=== PATIENT | male | born 1985 ===

== ENCOUNTER 2021-04-11 21:03 | Emergency (ER) | payer SELFPAY ==
[2021-04-12 00:51] LABS: Basophils # (Auto) 0.1 K/mm3 (0.0-0.1); Basophils % (Auto) 0.9 % (0.0-1.8); Eosinophils # (Auto) 0.1 K/mm3 (0.0-0.4); Eosinophils % (Auto) 1.3 % (0.0-4.3); Hematocrit 42.2 % (35.5-45.6); Hemoglobin 14.6 gm/dl (11.8-15.2); Lymphocytes # (Auto) 2.2 K/mm3 (1.2-5.4); Lymphocytes % (Auto) 25.9 % (13.4-35.0); Mean Corpuscular HGB Conc 35 % (32-34); Mean Corpuscular Volume 89 fl (84-94); Monocytes # (Auto) 0.5 K/mm3 (0.0-0.8); Monocytes % (Auto) 6.6 % (0.0-7.3); Platelet Count 301 K/mm3 (140-440); Red Blood Count 4.72 M/mm3 (3.65-5.03); Red Cell Distribution Width 13.1 % (13.2-15.2)
[2021-04-12 00:53] LABS: Bilirubin,Urine NEG (Negative); Blood,Urine NEG (Negative); Color,Urine Yellow (Yellow); Mucus,Urine FEW /HPF; Protein,Urine <15 mg/dL mg/dL (Negative); RBC,Urine < 1.0 /HPF (0.0-6.0)
[2021-04-12 01:11] LABS: Alanine Aminotransferase 12 units/L (7-56); Albumin 4.3 g/dL (3.9-5); BUN/Creatinine Ratio 13; Blood Urea Nitrogen 10 mg/dL (9-20); Calcium 9.3 mg/dL (8.4-10.2); Hemolysis Index 9
--- NOTE | 2021-04-12 01:29 | Emergency Department Report ---
ED General Adult HPI - General Chief complaint: Psych Stated complaint: Im fine PUI?: No Time Seen by Provider: 04/12/21 00:50 Source: patient, police, EMS ( EMS documentation not available at time of chart dictation ), RN notes reviewed Mode of arrival: Stretcher Limitations: Other (Patient is disorganized) - History of Present Illness Initial comments: The patient is a 35-year-old gentleman. He is not known to myself previously. He is brought to the hospital by emergency medical services. It is unclear why the patient was brought to the hospital. The patient is disorganized. He is not accompanied by friends or family at this time for collateral information or additional information. I asked the patient if anything is hurting him. He says no. Patient is then asked if he has any request for medical evaluation. He says no. However, the patient cannot tell me where he lives, where he is currently located, the date, month or year. The patient asks for food. However, the patient does not demonstrate rational thought process. The patient has a black eye. He cannot tell me how he got it. No additional history is available at this time. It is unclear who called 911 -: unknown - Related Data Allergies Allergy/AdvReac Type Severity Reaction Status Date / Time No Known Allergies Allergy Verified 04/11/21 21:53 ED Review of Systems ROS: Stated complaint: FEELING SICK X 2MTHS/HOMELESS Other details as noted in HPI Comment: Unobtainable due to pts medical conditions ED Past Medical Hx - Past Medical History Previous Medical History?: No ED Physical Exam - General Limitations: Altered Mental Status, Other (Disorganized behavior) General appearance: anxious - Head Head exam: Present: atraumatic, normocephalic - Eye Eye exam: Present: PERRL, EOMI, periorbital swelling, periorbital tenderness. Absent: normal appearance (There is a right-sided supraorbital ecchymosis) - ENT ENT exam: Present: normal exam, normal orophraynx, mucous membranes moist, normal external ear exam - Neck Neck exam: Present: normal inspection, full ROM. Absent: tenderness, meningismus - Respiratory Respiratory exam: Present: normal lung sounds bilaterally. Absent: respiratory distress, wheezes, rales, rhonchi, stridor, decreased breath sounds - Cardiovascular Cardiovascular Exam: Present: regular rate, normal rhythm, normal heart sounds. Absent: bradycardia, tachycardia, irregular rhythm, systolic murmur, diastolic murmur, rubs, gallop - GI/Abdominal GI/Abdominal exam: Present: soft. Absent: distended, tenderness, guarding, rebound, rigid, pulsatile mass - Rectal Rectal exam: Present: deferred - Extremities Exam Extremities exam: Present: normal inspection, full ROM, other (2+ pulses noted in the bilateral upper and lower extremities. There is no palpable cord. negative Homans sign. Muscular compartments are soft. The pelvis is stable.). Absent: pedal edema, calf tenderness - Back Exam Back exam: Present: normal inspection, full ROM. Absent: tenderness, CVA tenderness (R), CVA tenderness (L), paraspinal tenderness, vertebral tenderness - Neurological Exam Neurological exam: Present: other (There is no facial droop. The tongue is midline. EOMI. 5 out of 5 strength in 4 extremities. Sensation intact to light touch in 4 extremities). Absent: motor sensory deficit - Psychiatric Psychiatric exam: Present: flat affect - Skin Skin exam: Present: warm, abrasion, ecchymosis ED Course Vital Signs 04/11/21 21:52 Temperature 98.6 F Pulse Rate 88 Respiratory 16 Rate Blood Pressure 132/80 [Left] O2 Sat by Pulse 97 Oximetry - Reevaluation(s) Reevaluation #1: 04/12/21 02:44 Differential diagnosis, including but not limited to: Homelessness, psychosis, malingering, encounter for behavioral health screening, encounter for medical screening examination, intracranial injury, cervical spine injury, facial injury Assessment and plan: 35-year-old gentleman, who was afebrile, with reassuring vital signs, who appears to be acutely disorganized, and through questioning, does not appear to demonstrate rational thought process or decision-making capacity. He cannot tell me how he has a black eye, nor can he tell me the context of how he came to be to the emergency room. Patient very quiet, withdrawn, and he does not demonstrate the ability to care for himself independently, or demonstrate a rational thought process. He is therefore placed on a 1013 hold/involuntary hold. Appropriate laboratory studies will be obtained. Given evidence of close head injury and blunt facial trauma, noncontrast CT scan of the brain, facial bones and cervical spine will be obtained. Psychiatric consultation will be requested once the patient has been medically cleared. Reevaluation #2: 04/12/21 02:53 I am now able to review EMS documentation. They document the patient's chief complaint was vomiting and feeling sick. There is no reported use of drugs or alcohol. EMS documents a GCS of 15. Apparently, patient found sitting upright on a park bench, with a cra officer on scene, who advised that the patient is homeless, and requested to be tr ansported to the hospital because he is cold. Given this history, in addition to the assessment by our nursing team, I suspect that this patient is presenting for the purposes of secondary gain, i.e. prison, and food. However, we will medically clear him for the psychiatric team to make final d isposition and recommendations. 04/12/21 03:52 ER work-up unremarkable for acute and/or emergent findings. I observed this patient to be showering in our decontamination room, and in no acute distress. CT scan brain, cervical spine and facial bones negative for acute findings. At this point in time, this patient does not have an immediate medical contraindication to psychiatric admission, evaluation, consultation and placement. If the psychiatric team advises that this patient is organized e nough to be discharged and does not require 1013 hold or involuntary hold, medically speaking, he is suitable for discharge with outpatient follow-up. Therefore, final disposition will be as per our psychiatric colleagues recommendations ED Medical Decision Making - Lab Data Result diagrams: 04/12/21 00:20 04/12/21 00:20 Vital Signs 04/11/21 21:52 Temperature 98.6 F Pulse Rate 88 Respiratory 16 Rate Blood Pressure 132/80 [Left] O2 Sat by Pulse 97 Oximetry Lab Results 04/12/21 04/12/21 04/12/21 Range/Units 00:20 00:20 00:20 WBC 8.4 (4.5-11.0) K/mm3 RBC 4.72 (3.65-5.03) M/mm3 Hgb 14.6 (11.8-15.2) gm/dl Hct 42.2 (35.5-45.6) % MCV 89 (84-94) fl MCH 31 (28-32) pg MCHC 35 H (32-34) % RDW 13.1 L (13.2-15.2) % Plt Count 301 (140-440) K/mm3 Lymph % (Auto) 25.9 (13.4-35.0) % [place] % (Auto) 6.6 (0.0-7.3) % Eos % (Auto) 1.3 (0.0-4.3) % Baso % (Auto) 0.9 (0.0-1.8) % Lymph # (Auto) 2.2 (1.2-5.4) K/mm3 [place] # (Auto) 0.5 (0.0-0.8) K/mm3 Eos # (Auto) 0.1 (0.0-0.4) K/mm3 Baso # (Auto) 0.1 (0.0-0.1) K/mm3 Seg Neutrophils % 65.3 (40.0-70.0) % Seg Neutrophils # 5.5 (1.8-7.7) K/mm3 Sodium 139 (137-145) mmol/L Potassium 3.8 (3.6-5.0) mmol/L Chloride 100.7 (98-107) mmol/L Carbon Dioxide 26 (22-30) mmol/L Anion Gap 16 mmol/L BUN 10 (9-20) mg/dL Creatinine 0.8 (0.8-1.3) mg/dL Estimated GFR > 60 ml/min BUN/Creatinine Ratio 13 % Glucose 91 (75-100) mg/dL Calcium 9.3 (8.4-10.2) mg/dL Total Bilirubin 0.70 (0.1-1.2) mg/dL AST 15 (5-40) units/L ALT 12 (7-56) units/L Alkaline Phosphatase 70 (35-129) units/L Total Protein 7.4 (6.3-8.2) g/dL Albumin 4.3 (3.9-5) g/dL Albumin/Globulin Ratio 1.4 % Lipase 35 (13-60) units/L Urine Color (Yellow) Urine Turbidity (Clear) Urine pH (5.0-7.0) Ur Specific [place] (1.003-1.030) Urine Protein (Negative) mg/dL Urine Glucose (UA) (Negative) mg/dL Urine Ketones (Negative) mg/dL Urine Blood (Negative) Urine Nitrite (Negative) Urine Bilirubin (Negative) Urine Urobilinogen (<2.0) mg/dL Ur Leukocyte Esterase (Negative) Urine WBC (Auto) (0.0-6.0) /HPF Urine RBC (Auto) (0.0-6.0) /HPF Urine Mucus /HPF Urine Opiates Screen Urine Methadone Screen Acetaminophen (10.0-30.0) ug/mL Ur Barbiturates Screen Ur Phencyclidine Scrn Ur Amphetamines Screen U Benzodiazepines Scrn Urine Cocaine Screen U Marijuana (THC) Screen 04/12/21 04/12/21 04/12/21 Range/Units 00:33 02:13 Unknown WBC (4.5-11.0) K/mm3 RBC (3.65-5.03) M/mm3 Hgb (11.8-15.2) gm/dl Hct (35.5-45.6) % MCV (84-94) fl MCH (28-32) pg MCHC (32-34) % RDW (13.2-15.2) % Plt Count (140-440) K/mm3 Lymph % (Auto) (13.4-35.0) % [place] % (Auto) (0.0-7.3) % Eos % (Auto) (0.0-4.3) % Baso % (Auto) (0.0-1.8) % Lymph # (Auto) (1.2-5.4) K/mm3 [place] # (Auto) (0.0-0.8) K/mm3 Eos # (Auto) (0.0-0.4) K/mm3 Baso # (Auto) (0.0-0.1) K/mm3 Seg Neutrophils % (40.0-70.0) % Seg Neutrophils # (1.8-7.7) K/mm3 Sodium (137-145) mmol/L Potassium (3.6-5.0) mmol/L Chloride (98-107) mmol/L Carbon Dioxide (22-30) mmol/L Anion Gap mmol/L BUN (9-20) mg/dL Creatinine (0.8-1.3) mg/dL Estimated GFR ml/min BUN/Creatinine Ratio % Glucose (75-100) mg/dL Calcium (8.4-10.2) mg/dL Total Bilirubin (0.1-1.2) mg/dL AST (5-40) units/L ALT (7-56) units/L Alkaline Phosphatase (35-129) units/L Total Protein (6.3-8.2) g/dL Albumin (3.9-5) g/dL Albumin/Globulin Ratio % Lipase (13-60) units/L Urine Color Yellow Yellow (Yellow) Urine Turbidity Clear Clear (Clear) Urine pH 5.0 5.0 (5.0-7.0) Ur Specific [place] 1.016 1.016 (1.003-1.030) Urine Protein <15 mg/dl <15 mg/dl (Negative) mg/dL Urine Glucose (UA) Neg Neg (Negative) mg/dL Urine Ketones Tr Tr (Negative) mg/dL Urine Blood Neg Neg (Negative) Urine Nitrite Neg Neg (Negative) Urine Bilirubin Neg Neg (Negative) Urine Urobilinogen 4.0 4.0 (<2.0) mg/dL Ur Leukocyte Esterase Neg Neg (Negative) Urine WBC (Auto) 1.0 < 1.0 (0.0-6.0) /HPF Urine RBC (Auto) < 1.0 1.0 (0.0-6.0) /HPF Urine Mucus Few Few /HPF Urine Opiates Screen Urine Methadone Screen Acetaminophen 5.0 L (10.0-30.0) ug/mL Ur Barbiturates Screen Ur Phencyclidine Scrn Ur Amphetamines Screen U Benzodiazepines Scrn Urine Cocaine Screen U Marijuana (THC) Screen 04/12/21 Range/Units Unknown WBC (4.5-11.0) K/mm3 RBC (3.65-5.03) M/mm3 Hgb (11.8-15.2) gm/dl Hct (35.5-45.6) % MCV (84-94) fl MCH (28-32) pg MCHC (32-34) % RDW (13.2-15.2) % Plt Count (140-440) K/mm3 Lymph % (Auto) (13.4-35.0) % [place] % (Auto) (0.0-7.3) % Eos % (Auto) (0.0-4.3) % Baso % (Auto) (0.0-1.8) % Lymph # (Auto) (1.2-5.4) K/mm3 [place] # (Auto) (0.0-0.8) K/mm3 Eos # (Auto) (0.0-0.4) K/mm3 Baso # (Auto) (0.0-0.1) K/mm3 Seg Neutrophils % (40.0-70.0) % Seg Neutrophils # (1.8-7.7) K/mm3 Sodium (137-145) mmol/L Potassium (3.6-5.0) mmol/L Chloride (98-107) mmol/L Carbon Dioxide (22-30) mmol/L Anion Gap mmol/L BUN (9-20) mg/dL Creatinine (0.8-1.3) mg/dL Estimated GFR ml/min BUN/Creatinine Ratio % Glucose (75-100) mg/dL Calcium (8.4-10.2) mg/dL Total Bilirubin (0.1-1.2) mg/dL AST (5-40) units/L ALT (7-56) units/L Alkaline Phosphatase (35-129) units/L Total Protein (6.3-8.2) g/dL Albumin (3.9-5) g/dL Albumin/Globulin Ratio % Lipase (13-60) units/L Urine Color (Yellow) Urine Turbidity (Clear) Urine pH (5.0-7.0) Ur Specific [place] (1.003-1.030) Urine Protein (Negative) mg/dL Urine Glucose (UA) (Negative) mg/dL Urine Ketones (Negative) mg/dL Urine Blood (Negative) Urine Nitrite (Negative) Urine Bilirubin (Negative) Urine Urobilinogen (<2.0) mg/dL Ur Leukocyte Esterase (Negative) Urine WBC (Auto) (0.0-6.0) /HPF Urine RBC (Auto) (0.0-6.0) /HPF Urine Mucus /HPF Urine Opiates Screen Negative Urine Methadone Screen Negative Acetaminophen (10.0-30.0) ug/mL Ur Barbiturates Screen Negative Ur Phencyclidine Scrn Negative Ur Amphetamines Screen Negative U Benzodiazepines Scrn Negative Urine Cocaine Screen Negative U Marijuana (THC) Screen Negative - Radiology Data Radiology results: pending, report reviewed, image reviewed CT head without contrast INDICATION : closed head injury, disorganised behaviour. TECHNIQUE: Axial imaging performed from the skull apex through the skull base without the use of contrast. All CT scans at this location are performed using CT dose reduction for ALARA by means of automated exposure control. COMPARISON: None FINDINGS: Parenchyma: No mass, stroke or hemorrhage. Ventricles: Ventricles are normal in size and appear symmetric. Soft tissues: Soft tissues including the orbits appear normal. Bones: No acute osseous abnormality. Sinuses: Sinuses and mastoid air cells are clear. IMPRESSION: No acute abnormality. Signer Name: Gonzalez Carias MD Signed: 04/12/2021 1:53 AM Workstation Name: [id number] CT facial bones wo con INDICATION: closed head injury, disorganised behaviour. TECHNIQUE: All CT scans at this location are performed using the following dose modulation technique: Automated exposure control. CONTRAST: None. COMPARISON: None available. FINDINGS: Negative for bony injury or sinus air-fluid level. No significant soft tissue injury. IMPRESSION: Unremarkable CT face without contrast. Signer Name: Gonzalez Carias MD Signed: 04/12/2021 1:51 AM Workstation Name: [id number] CT cervical spine wo con INDICATION: closed head injury, disorganised behaviour. Neck pain. TECHNIQUE: All CT scans at this location are performed using the following dose modulation technique: Automated exposure control. CONTRAST: None. COMPARISON: None available. FINDINGS: Satisfactory alignment without vertebral compression or significant degenerative change. No significant soft tissue injury. IMPRESSION: Negative CT cervical spine without contrast. Signer Name: Gonzalez Carias MD Signed: 04/12/2021 2:07 AM Workstation Name: [email or web address] Critical care attestation.: If time is entered above; I have spent that time in minutes in the direct care of this critically ill patient, excluding procedure time. ED Disposition Clinical Impression: Homelessness, Closed head injury, Disorganized behavior, Encounter for medical screening examination, Encounter for behavioral health screening Disposition: [address] [place] [address] Is pt being admited?: No Does the pt Need Aspirin: No Condition: Good Referrals: JOVON PALAFOX MD [Primary Care Provider] - 3-5 Days
[2021-04-12] MEDS ORDERED: HALOPERIDOL LACTATE 5 MG/1 ML INJ IM PRN (01:38)
[2021-04-12] MEDS ORDERED: LORazepam 2 MG/ML VIAL IM PRN (01:38)
[2021-04-12 02:34] LABS: Bilirubin,Urine NEG (Negative); Blood,Urine NEG (Negative); Color,Urine Yellow (Yellow); Mucus,Urine FEW /HPF; Protein,Urine <15 mg/dL mg/dL (Negative); WBC,Urine < 1.0 /HPF (0.0-6.0)
[2021-04-12 02:40] LABS: Amphetamine Screen,Urine Negative; Benzodiazepines Screen,Urine Negative; Cannabinoid Screen,Urine Negative; Cocaine Screen,Urine Negative; Methadone Screen,Urine Negative; Opiate Screen,Urine Negative
--- NOTE | 2021-04-12 02:55 | Cat Scan Report ---
CT facial bones wo con INDICATION: closed head injury, disorganised behaviour. TECHNIQUE: All CT scans at this location are performed using the following dose modulation technique: Automated exposure control. CONTRAST: None. COMPARISON: None available. FINDINGS: Negative for bony injury or sinus air-fluid level. No significant soft tissue injury. IMPRESSION: Unremarkable CT face without contrast. Signer Name: Gonzalez Carias MD Signed: 04/12/2021 2:51 AM Workstation Name: [id number]
--- NOTE | 2021-04-12 02:58 | Cat Scan Report ---
CT head without contrast INDICATION : closed head injury, disorganised behaviour. TECHNIQUE: Axial imaging performed from the skull apex through the skull base without the use of con trast. All CT scans at this location are performed using CT dose reduction for AL[place] by means of aut omated exposure control. COMPARISON: None FINDINGS: Parenchyma: No mass, stroke or hemorrhage. Ventricles: Ventricles are normal in size and appear symmetric. Soft tissues: Soft tissues including the orbits appear normal. Bones: No acute osseous abnormality. Sinuses: Sinuses and mastoid air cells are clear. IMPRESSION: No acute abnormality. Signer Name: Gonzalez Carias MD Signed: 04/12/2021 2:53 AM Workstation Name: [id number]
--- NOTE | 2021-04-12 03:12 | Cat Scan Report ---
CT cervical spine wo con INDICATION: closed head injury, disorganised behaviour. Neck pain. TECHNIQUE: All CT scans at this location are performed using the following dose modulation technique: Automated exposure control. CONTRAST: None. COMPARISON: None available. FINDINGS: Satisfactory alignment without vertebral compression or significant degenerative change. No significant soft tissue injury. IMPRESSION: Negative CT cervical spine without contrast. Signer Name: Gonzalez Carias MD Signed: 04/12/2021 3:07 AM Workstation Name: [id number]
--- NOTE | 2021-04-12 10:33 | Consultation ---
History of Present Illness - Reason for Consult Consult date: 04/12/21 Reason for consult: Mental health evaluation - History of Present Psychiatric Illness Per ED Note: The patient is a 35-year-old gentleman. He is not known to myself previously. He is brought to the hospital by emergency medical services. It is unclear why the patient was brought to the hospital.The patient is disorganized. He is not accompanied by friends or family at this time for collateral information or additional information. I asked the patient if anything is hurting him. He says no. Patient is then asked if he has any request for medical evaluation. He says no. However, the patient cannot tell me where he lives, where he is currently located, the date, month or year. The patient asks for food. However, the patient does not demonstrate rational thought process. Benigno Lopez is a 35 year old male with unknown psychiatric diagnosis. In my interview with the patient, he presents with flat affect. The patient is unable to participate in assessment; presents with questionable thought process, he does not seem to understand the questions but states a "No" response. The patient has a black eye. He cannot tell me how he got it. PAST PSYCHIATRIC HISTORY- Unable to assess PAST MEDICAL HISTORY: Family Psychiatric History: None reported or documented SOCIAL HISTORY-Unable to assess REVIEW OF SYSTEMS-Unable to assess MENTAL STATUS EXAMINATION Assessment and Plan (1) Unspecified mood disorder Current Visit: No Status: Acute RECOMMENDATIONS continue 1013 Zyprexa 5mg po Bid Risks, benefits and alternatives of medications discussed with the patient, questions answered and consent obtained from patient. PSYCHOTHERAPY: Supportive psychotherapy provided MEDICAL: Per primary team DELIRIUM PRECAUTIONS: Please re-orient patient frequently, keep lights on during the day, and minimize benzodiazepines and opiates as these medications could worsen patient's confusion. PBX MANAGER: non indicated DISPOSITION: Recommend acute inpatient psychiatric hospitalization at this time. FOLLOW-UP: Will follow. Thank you for the consult. Please contact with any questions and/or concerns. Medications and Allergies Medications and Allergies Medications and Allergies Allergies Allergy/AdvReac Type Severity Reaction Status Date / Time No Known Allergies Allergy Verified 04/11/21 21:53 Active Meds: Active Medications Haloperidol Lactate (Haloperidol Lactate 5 Mg/1 Ml Inj) 5 mg IM Q6HR PRN PRN Reason: Agitation Lorazepam (Lorazepam 2 Mg/Ml Vial) 2 mg IM Q4HR PRN PRN Reason: Agitation Mental Status Exam - Vital signs Last Vital Signs Temp 98.6 F 04/11/21 21:52 Pulse 88 04/11/21 21:52 Resp 16 04/11/21 21:52 BP 132/80 04/11/21 21:52 Pulse Ox 97 04/11/21 21:52 Results Result Diagrams: 04/12/21 00:20 04/12/21 00:20 Abnormal lab results 04/12/21 04/12/21 04/12/21 Range/Units 00:20 02:13 02:13 MCHC 35 H (32-34) % RDW 13.1 L (13.2-15.2) % Salicylates < 0.3 L (2.8-20.0) mg/dL Acetaminophen 5.0 L (10.0-30.0) ug/mL All other labs normal.
--- NOTE | 2021-04-12 11:25 | Emergency Department Report ---
Blank Doc - Documentation Documentation: Patient has no complaints or concerns this morning. Psychiatric recommendations have been noted. We will continue to provide supportive care until psychiatric placement can be accomplished.
--- NOTE | 2021-04-13 09:57 | Progress Note ---
Subjective - Reason for Consult Consult date: 04/13/21 Reason for consult: Mental health evaluation - Chief Complaint Chief complaint: The patient was seen this morning, he continues to present with mutism. The patient is confused and unable to answer questions. PAST PSYCHIATRIC HISTORY- Unable to assess PAST MEDICAL HISTORY: Family Psychiatric History: None reported or documented SOCIAL HISTORY-Unable to assess REVIEW OF SYSTEMS-Unable to assess MENTAL STATUS EXAMINATION Assessment and Plan (1) Unspecified mood disorder Current Visit: No Status: Acute RECOMMENDATIONS continue 1013 Zyprexa 5mg po Bid Risks, benefits and alternatives of medications discussed with the patient, questions answered and consent obtained from patient. PSYCHOTHERAPY: Supportive psychotherapy provided MEDICAL: Per primary team DELIRIUM PRECAUTIONS: Please re-orient patient frequently, keep lights on during the day, and minimize benzodiazepines and opiates as these medications could worsen patient's confusion. POTTER OR CERAMIC ARTIST: non indicated DISPOSITION: Recommend acute inpatient psychiatric hospitalization at this time. FOLLOW-UP: Will follow. Thank you for the consult. Please contact with any questions and/or concerns. Medications and Allergies Medications and Allergies Medications and Allergies Allergies Mental Status Exam - Vital signs Last Vital Signs Temp 98.6 F 04/13/21 09:48 Pulse 79 04/13/21 09:48 Resp 18 04/13/21 09:48 BP 101/67 04/13/21 09:48 Pulse Ox 96 04/13/21 09:48
--- NOTE | 2021-04-13 11:11 | Emergency Department Report ---
Blank Doc - Documentation Documentation: Patient is still not cooperative or interactive today. He had apparently refu sed a coronavirus swab. He does not have the capacity to refuse care. Coronavirus swab will be reordered. We are awaiting psychiatric admission.
[2021-04-14 03:47] VITALS: BP 99/69
--- NOTE | 2021-04-14 11:20 | Progress Note ---
Subjective - Reason for Consult Consult date: 04/14/21 Reason for consult: mental health evaluation - Chief Complaint Chief complaint: The patient was seen this morning, he continues to present with mutism. The patient is confused and unable to answer questions. PAST PSYCHIATRIC HISTORY- Unable to assess PAST MEDICAL HISTORY: Family Psychiatric History: None reported or documented SOCIAL HISTORY-Unable to assess REVIEW OF SYSTEMS-Unable to assess MENTAL STATUS EXAMINATION Assessment and Plan (1) Unspecified mood disorder Current Visit: No Status: Acute RECOMMENDATIONS continue 1013 Continue Zyprexa 5mg po Bid Start Depakote 125mg po BID Risks, benefits and alternatives of medications discussed with the patient, questions answered and consent obtained from patient. PSYCHOTHERAPY: Supportive psychotherapy provided MEDICAL: Per primary team DELIRIUM PRECAUTIONS: Please re-orient patient frequently, keep lights on during the day, and minimize benzodiazepines and opiates as these medications could worsen patient's confusion. STUDIO GRIP: non indicated DISPOSITION: Recommend acute inpatient psychiatric hospitalization at this time. FOLLOW-UP: Will follow. Thank you for the consult. Please contact with any questions and/or concerns. Medications and Allergies Medications and Allergies Medications and Allergies Allergies Mental Status Exam - Vital signs Last Vital Signs Temp 97.6 F 04/14/21 03:46 Pulse 86 04/14/21 03:46 Resp 18 04/14/21 03:46 BP 99/69 04/14/21 03:46 Pulse Ox 98 04/14/21 11:04
--- NOTE | 2021-04-14 11:47 | Emergency Department Report ---
Blank Doc - Documentation Documentation: This patient was seen by the psychiatric team today. He is listed as having a mood disorder and continues with mutism. The recommendation is to continue for inpatient stabilization. They are attempting to stabilize the patient with Zyprexa and Depakote. I spoke with the psychiatric ED nurse who says that there have been no events overnight or this morning. No new labs. Vital signs reassuring throughout his ED course thus far including being afebrile. We will continue to monitor this patient during his ED course.
[2021-04-14] MEDS ORDERED: DIVALPROEX DR 125 MG TAB PO SCH (12:00)
== END 2021-04-14 15:28 ==
LOC: EDSEX 21:03 → ED 21:03
DX: S09.90XA Unspecified injury of head, initial encounter (principal); Z20.822 Contact with and (suspected) exposure to COVID-19; Z59.00 Homelessness unspecified; F39 Unspecified mood [affective] disorder; X58.XXXA Exposure to other specified factors, initial encounter; Y93.89 Activity, other specified; Y92.89 Other specified places as the place of occurrence of the external cause; Y99.8 Other external cause status
CPT/HCPCS: 36415; 70450; 70486; 72125; 80053; 80307; 81001; 83690; 84443; 85025; 96372; 99285; U0003; 80320; G0480